=== PATIENT | female | born 1995 | race Caucasian/White ===

== ENCOUNTER 2021-10-19 19:41 | Emergency (ER) | payer OTHER ==
[~2021-10-19 19:41] MED LIST: IBUPROFEN600 MG PO; NAPROSYN500 MG PO; ZOFRAN4 MG PO
== END 2021-10-20 02:07 | disposition home or self-care (01) ==
LOC: ER1 19:41
DX: S16.1XXA Strain of muscle, fascia and tendon at neck level, initial encounter (principal); S00.83XA Contusion of other part of head, initial encounter; F17.200 Nicotine dependence, unspecified, uncomplicated; V43.52XA Car driver injured in collision with other type car in traffic accident, initial encounter
CPT/HCPCS: 70450; 70486; 72125; 72128; 72131; 73090; 73562; 99284; Q9967